=== PATIENT | female | born 1985 | race American Indian/Alaskan Native ===

== ENCOUNTER 2017-08-08 03:55 | Emergency (ER) | payer MEDICAID, OTHER ==
[2017-08-08 05:28] LABS: Anion Gap 19 mmol/L; BUN/Creatinine Ratio 15.71; Blood Urea Nitrogen 11 mg/dL (7-17); Calcium 8.9 mg/dL (8.4-10.2); Carbon Dioxide 22 mmol/L (22-30); Chloride 98.6 mmol/L (98-107); Glucose 101 mg/dL (65-100); Potassium 4.4 mmol/L (3.6-5.0); Sodium 135 mmol/L (137-145)
[2017-08-08 05:50] LABS: Basophils % (Auto) 0.4 % (0.0-1.8); Eosinophils % (Auto) 1.3 % (0.0-4.3); Hemoglobin 13.4 gm/dl (10.1-14.3); Mean Corpuscular HGB Conc 34 % (30-34); Mean Corpuscular Hemoglobin 30 pg (28-32); Mean Corpuscular Volume 86 fl (79-97); Platelet Count 221 K/mm3 (140-440); Red Blood Count 4.54 M/mm3 (3.65-5.03); Red Cell Distribution Width 14.1 % (13.2-15.2); White Blood Count 7.3 K/mm3 (4.5-11.0)
[2017-08-08 06:05] LABS: Bilirubin,Urine NEG (Negative); Blood,Urine NEG (Negative); Ketones,Urine NEG (Negative); Leukocyte Esterase,Urine NEG (Negative); Nitrite,Urine NEG (Negative); Protein,Urine <15 mg/dL mg/dL (Negative); Urobilinogen,Urine < 2.0 mg/dL (<2.0); WBC,Urine < 1.0 /HPF (0.0-6.0)
--- NOTE | 2017-08-08 12:05 | Ultrasound Report ---
FINAL REPORT EXAM: US OB TRANSVAGINAL HISTORY: / VAG BLEEDING TECHNIQUE: Transabdominal and transvaginal OB ultrasound. PRIORS: None currently available. FINDINGS: Single intrauterine dates 6.4 weeks mean sac diameter. STACI equals March 30, 2018. Gestational sac measures 17.0 mm. No yolk sac or pole identified. No subchorionic bleed[place] [address]. Uterus: 12.5 x 5.0 x 8.0 cm. Right ovary: 3.5 x 2.2 x 2.6. within normal limits. Left Ovary: 4.0 x 2.8 x 3.9. cystic structure without peripheral flow measuring 2.0 x 0.8 x 2.0 cm. Adnexal: Unremarkable. No free fluid. IMPRESSION: Gestational sac without yolk sac or pole. Given the beta HCG levels findings are concerning for a nonviable versus early . Short-term interval follow-up recommended. Cystic lesion in the left ovary is atypical and could represent a corpus luteal cyst. Ectopic is not entirely excluded but less likely given the lack of peripheral flow and no complex free fluid in the cul-de-sac. Please correlate for localized tenderness.
--- NOTE | 2017-08-08 12:05 | Ultrasound Report ---
FINAL REPORT EXAM: US OB \T\lt; = 14 WEEKS FETUS HISTORY: / VAG BLEEDING TECHNIQUE: Transabdominal and transvaginal OB ultrasound. PRIORS: None currently available. FINDINGS: Single intrauterine dates 6.4 weeks mean sac diameter. STACI equals March 30, 2018. Gestational sac measures 17.0 mm. No yolk sac or pole identified. No subchorionic bleed[place] [address]. Uterus: 12.5 x 5.0 x 8.0 cm. Right ovary: 3.5 x 2.2 x 2.6. within normal limits. Left Ovary: 4.0 x 2.8 x 3.9. cystic structure without peripheral flow measuring 2.0 x 0.8 x 2.0 cm. Adnexal: Unremarkable. No free fluid. IMPRESSION: Gestational sac without yolk sac or pole. Given the beta HCG levels findings are concerning for a nonviable versus early . Short-term interval follow-up recommended. Cystic lesion in the left ovary is atypical and could represent a corpus luteal cyst. Ectopic is not entirely excluded but less likely given the lack of peripheral flow and no complex free fluid in the cul-de-sac. Please correlate for localized tenderness.
--- NOTE | 2017-08-08 12:47 | Emergency Department Report ---
ED HPI - General Chief complaint: Vaginal Bleeding Stated complaint: ADB PAIN/VAG BLEEDING/5 WKS PREG Time Seen by Provider: 08/08/17 11:48 Source: patient Mode of arrival: Ambulatory Limitations: No Limitations - History of Present Illness Initial comments: 31-year-old female who presents to the hospital 5 weeks 6/7 days according to LMP presents to the hospital with suprapubic cramping, left lower quadrant pain and vaginal spotting. Patient has had suprapubic cramping throughout her . She developed left lower quadrant sharp pain last night that has since improved. Pain was moderate to severe in intensity initially. Patient has some mild vaginal spotting that has since improved. Last sexual intercourse was 2 days ago. This is her fifth and she has 4 living children and denies history of miscarriages or ectopic. PROCESS MECHANIC doctor is Dr. Brenda Snyder. Patient has had blood work performed to confirm as outpatient but no outpatient ultrasound. - Related Data Previous Rx's Medication Instructions Recorded Last Taken Type Azithromycin [Zithromax] 250 mg PO QDAY #6 tablet 11/05/16 Unknown Rx RX: ALBUTEROL Inhaler [ProAir HFA 1 puff IH Q4HR PRN #1 inha 11/05/16 Unknown Rx Inhaler] RX: guaiFENesin/DEXTROMETHORPHAN 10 ml PO Q4HR PRN #1 liquid 11/05/16 Unknown Rx [Eql Tussin Dm Max Liquid] Allergies Allergy/AdvReac Type Severity Reaction Status Date / Time No Known Allergies Allergy Unverified 11/05/16 09:57 ED Review of Systems ROS: Stated complaint: ADB PAIN/VAG BLEEDING/5 WKS PREG Other details as noted in HPI Comment: All other systems reviewed and negative Other: Constitutional: No fevers chills Eyes: No eye pain visual changes ENT: No ear pain or throat pain Neck: Denies pain Respiratory: Denies cough wheezing shortness of breath Cardiovascular: Denies chest pain, palpitations, syncope GI: Denies nausea, vomiting, diarrhea : Denies dysuria Musculoskeletal: Denies back pain Skin: Denies rash, lesions, erythema Neurologic: Denies headache, numbness, weakness Psychiatric: Denies suicidal ideation, hallucinations ED Past Medical Hx - Past Medical History Previous Medical History?: No Additional medical history: vaginal delivery x 1 - Surgical History Past Surgical History?: Yes Additional Surgical History: x 3 - Social History Smoking Status: Never Smoker Substance Use Type: None - Medications Home Medications: Home Medications Medication Instructions Recorded Confirmed Last Taken Type Azithromycin [Zithromax] 250 mg PO QDAY #6 tablet 11/05/16 Unknown Rx RX: ALBUTEROL Inhaler [ProAir HFA 1 puff IH Q4HR PRN #1 inha 11/05/16 Unknown Rx Inhaler] RX: guaiFENesin/DEXTROMETHORPHAN 10 ml PO Q4HR PRN #1 liquid 11/05/16 Unknown Rx [Eql Tussin Dm Max Liquid] ED Physical Exam - General Limitations: No Limitations - Other Other exam information: General: No limitations, patient is alert in no acute distress Head exam: Atraumatic, normocephalic Eyes exam: Normal appearance ENT: Moist mucous membrane, normal oropharynx Neck exam: Normal inspection, full range of motion Respiratory exam: Clear to auscultation bilateral Cardiovascular: Normal rate and rhythm, normal heart sounds Abdomen: Soft, nondistended, left lower quadrant tenderness without rebound or guarding, mild suprapubic tenderness Extremity: Full range of motion normal inspection no deformity Back: Normal Inspection, full range of motion, no tenderness, Neurologic: Alert, oriented x3, cranial nerves intact, no motor or sensory deficit Psychiatric: normal affect, normal mood Skin: Warm, dry, intact ED Course Vital Signs 08/08/17 08/08/17 08/08/17 04:03 10:31 10:32 Temperature 98.5 F 98.8 F Pulse Rate 79 75 Respiratory 18 18 18 Rate Blood Pressure 139/77 O2 Sat by Pulse 100 100 100 Oximetry - Reevaluation(s) Reevaluation #1: 08/08/17 12:53 Patient declined offer for Tylenol - Consultations Consultation #1: 08/08/17 12:[address] Brenda Snyder her PROCESS MECHANIC doctor. Recommend follow-up in the clinic next Saturday for repeat ultrasound. ED Medical Decision Making - Lab Data Result diagrams: 08/08/17 04:26 08/08/17 04:26 Lab Results 08/08/17 08/08/17 08/08/17 Range/Units 04:26 04:26 04:26 WBC 7.3 (4.5-11.0) K/mm3 RBC 4.54 (3.65-5.03) M/mm3 Hgb 13.4 (10.1-14.3) gm/dl Hct 39.0 (30.3-42.9) % MCV 86 (79-97) fl MCH 30 (28-32) pg MCHC 34 (30-34) % RDW 14.1 (13.2-15.2) % Plt Count 221 (140-440) K/mm3 Lymph % (Auto) 36.7 H (13.4-35.0) % Sutton % (Auto) 5.9 (0.0-7.3) % Eos % (Auto) 1.3 (0.0-4.3) % Baso % (Auto) 0.4 (0.0-1.8) % Lymph # 2.7 (1.2-5.4) K/mm3 Sutton # 0.4 (0.0-0.8) K/mm3 Eos # 0.1 (0.0-0.4) K/mm3 Baso # 0.0 (0.0-0.1) K/mm3 Seg Neutrophils % 55.7 (40.0-70.0) % Seg Neutrophils # 4.1 (1.8-7.7) K/mm3 Sodium 135 L (137-145) mmol/L Potassium 4.4 (3.6-5.0) mmol/L Chloride 98.6 (98-107) mmol/L Carbon Dioxide 22 (22-30) mmol/L Anion Gap 19 mmol/L BUN 11 (7-17) mg/dL Creatinine 0.7 (0.7-1.2) mg/dL Estimated GFR > 60 ml/min BUN/Creatinine Ratio 15.71 % Glucose 101 H (65-100) mg/dL Calcium 8.9 (8.4-10.2) mg/dL HCG, Quant 43708 H (0-4) mIU/mL Urine Color (Yellow) Urine Turbidity (Clear) Urine pH (5.0-7.0) Ur Specific [place] (1.003-1.030) Urine Protein (Negative) mg/dL Urine Glucose (UA) (Negative) mg/dL Urine Ketones (Negative) mg/dL Urine Blood (Negative) Urine Nitrite (Negative) Urine Bilirubin (Negative) Urine Urobilinogen (<2.0) mg/dL Ur Leukocyte Esterase (Negative) Urine WBC (Auto) (0.0-6.0) /HPF Urine RBC (Auto) (0.0-6.0) /HPF U Epithel Cells (Auto) (0-13.0) /HPF Blood Type Antibody Screen 08/08/17 08/08/17 Range/Units 11:55 Unknown WBC (4.5-11.0) K/mm3 RBC (3.65-5.03) M/mm3 Hgb (10.1-14.3) gm/dl Hct (30.3-42.9) % MCV (79-97) fl MCH (28-32) pg MCHC (30-34) % RDW (13.2-15.2) % Plt Count (140-440) K/mm3 Lymph % (Auto) (13.4-35.0) % Sutton % (Auto) (0.0-7.3) % Eos % (Auto) (0.0-4.3) % Baso % (Auto) (0.0-1.8) % Lymph # (1.2-5.4) K/mm3 [place] # (0.0-0.8) K/mm3 Eos # (0.0-0.4) K/mm3 Baso # (0.0-0.1) K/mm3 Seg Neutrophils % (40.0-70.0) % Seg Neutrophils # (1.8-7.7) K/mm3 Sodium (137-145) mmol/L Potassium (3.6-5.0) mmol/L Chloride (98-107) mmol/L Carbon Dioxide (22-30) mmol/L Anion Gap mmol/L BUN (7-17) mg/dL Creatinine (0.7-1.2) mg/dL Estimated GFR ml/min BUN/Creatinine Ratio % Glucose (65-100) mg/dL Calcium (8.4-10.2) mg/dL HCG, Quant (0-4) mIU/mL Urine Color Straw (Yellow) Urine Turbidity Clear (Clear) Urine pH 7.0 (5.0-7.0) Ur Specific [place] 1.008 (1.003-1.030) Urine Protein <15 mg/dl (Negative) mg/dL Urine Glucose (UA) Neg (Negative) mg/dL Urine Ketones Neg (Negative) mg/dL Urine Blood Neg (Negative) Urine Nitrite Neg (Negative) Urine Bilirubin Neg (Negative) Urine Urobilinogen < 2.0 (<2.0) mg/dL Ur Leukocyte Esterase Neg (Negative) Urine WBC (Auto) < 1.0 (0.0-6.0) /HPF Urine RBC (Auto) 1.0 (0.0-6.0) /HPF U Epithel Cells (Auto) 1.0 (0-13.0) /HPF Blood Type A POSITIVE Antibody Screen Negative - Radiology Data Radiology results: report reviewed (transvaginal pelvic ultrasound: A positive gestational sac without pole. Concerning for nonviable versus early given the elevated bhcg. Cystic lesion in the left ovary is atypical and could represent corpus luteum cyst. Ectopic is not excluded) - Medical Decision Making Patient is Rh+ and therefore does not require RhoGAM. Case discussed with patient and the PROCESS MECHANIC doctor about concerns for ectopic until pole is visualized. PROCESS MECHANIC recommends follow-up next Saturday for repeat ultrasound - Differential Diagnosis ectopic, miscarriage, ovarian cyst Critical Care Time: No Critical care attestation.: If time is entered above; I have spent that time in minutes in the direct care of this critically ill patient, excluding procedure time. ED Disposition Clinical Impression: Threatened miscarriage, Left ovarian cyst, Blood type A+ Disposition: - TO HOME OR SELFCARE Is pt being admited?: No Does the pt Need Aspirin: No Condition: Stable Instructions: Threatened Miscarriage (ED), Ovarian Cyst (ED), Ectopic (ED) Additional Instructions: The ultrasound shows a gestational sac in the uterus and the left ovarian cyst. Until we can actually see a pole we cannot rule out an ectopic at this time. Therefore, you were also provided ectopic precautions. Recommended pelvic rest/no sex. Follow-up with your PROCESS MECHANIC doctor on Saturday the for repeat ultrasound. If pain or bleeding worsens prior to this date he may return to the ER for further evaluation. Please call the office to schedule an appointment. Take Tylenol only as needed for pain. Referrals: BRENDA SNYDER MD [Primary Care Provider] - 08/14/17 Time of Disposition: 12:44
[2017-08-08 13:13] VITALS: BP 122/75
== END 2017-08-08 13:11 | disposition home or self-care (01) ==
LOC: ED 03:55
DX: O20.0 Threatened abortion (principal); Z3A.01 Less than 8 weeks gestation of pregnancy; O34.81 Maternal care for other abnormalities of pelvic organs, first trimester; N83.202 Unspecified ovarian cyst, left side
CPT/HCPCS: 36415; 76801; 76817; 80048; 81001; 84702; 85025; 86850; 86900; 86901

== ENCOUNTER 2018-02-24 07:53 | Outpatient (CLI) | payer MEDICAID ==
[2018-02-24] MEDS ORDERED: LACTATED RINGERS 500 ML IV ONE (08:35)
[2018-02-24 08:54] LABS: Bacteria,Urine 1+ /HPF (Negative); Bilirubin,Urine NEG (Negative); Blood,Urine NEG (Negative); Color,Urine Yellow (Yellow); Protein,Urine <15 mg/dL mg/dL (Negative); Urobilinogen,Urine < 2.0 mg/dL (<2.0)
[2018-02-24] MEDS ORDERED: BRETHINE SUB-Q ONE (09:00)
[2018-02-24 10:41] VITALS: BP 133/71
== END 2018-02-24 09:56 | disposition home or self-care (01) ==
LOC: TRG 07:53
PROVIDERS: ATTEND Obstetrics & Gynecology
DX: O47.03 False labor before 37 completed weeks of gestation, third trimester (principal); Z3A.34 34 weeks gestation of pregnancy
CPT/HCPCS: 59025; 81001; J3105; J7120; 96372

== ENCOUNTER 2018-03-13 03:36 | Outpatient (CLI) | payer MEDICAID ==
[2018-03-13 04:10] VITALS: BP 134/76
[2018-03-13] MEDS ORDERED: LACTATED RINGERS 1,000 ML IV SCH (05:00)
[2018-03-13] MEDS ORDERED: ZOFRAN IV ONE (05:27)
[2018-03-13] MEDS ORDERED: VISTARIL PO ONE (05:28)
== END 2018-03-13 05:45 | disposition home or self-care (01) ==
LOC: TRG 03:36
PROVIDERS: ATTEND Obstetrics & Gynecology
DX: O47.1 False labor at or after 37 completed weeks of gestation (principal); Z3A.37 37 weeks gestation of pregnancy
CPT/HCPCS: 59025; 96360; J2405; J7120

== ENCOUNTER 2018-03-26 18:13 | Inpatient (IN) | payer MEDICAID ==
[2018-03-26] MEDS: LACTATED RINGERS 1,000 ML IV SCH (20:12)
[2018-03-26] MEDS ORDERED: PEPCID IV ONE (22:39)
[2018-03-26] MEDS ORDERED: BICITRA PO ONE (22:39)
[2018-03-26] MEDS ORDERED: REGLAN IV ONE (22:39)
--- NOTE | 2018-03-26 22:47 | History and Physical Report ---
History of Present Illness Date of examination: 03/26/18 Date of admission: 03/26/18 22:31 Chief complaint: Labor History of present illness: This is a 32yo female with history of 3 prior deliveries who presents complaining of contractions rated 7/10 pain. Cervix 0.5cm per RN she was found to be reg q2-4mins. She was given 1L IVF however contractions continued , she admitted now to proceed with repeat C/s d/t concerns for uterine rupture should contractions continue. Past History : 5 Term Births: 4 Premature Births: 0 Living Children: 4 Para: 4 Mult. Births: 0 Prev : 3 Prev. attempt? 0 Aborta: 0 Elect. Ab: 0 Spont. Ab: 0 Ectopics: 0 # 1 Delivery date: 09/02/2001 Weeks Gestation: 40 labor: no Delivery type: Anesthesia type: epidural Delivery location: [facility] Infant Sex: Female weight: 7-11 Comments: no complications # 2 Delivery date: 07/02/2006 Weeks Gestation: 39 labor: no Delivery type: Anesthesia type: epidural Delivery location: [facility] Sex: Female weight: 7-3 Comments: pcs d/t non reassuring fhr inc bp's # 3 Delivery date: 01/01/2008 Weeks Gestation: 39 labor: no Delivery type: Anesthesia type: epi/general Delivery location: [facility] Sex: Male weight: 7-2 Comments: sched rpt c/s no complications # 4 Delivery date: 08/24/2009 Weeks Gestation: 38+1 labor: no Delivery type: Anesthesia type: spinal Delivery location: [facility] Infant Sex: female weight: 6.63 Comments: early labor, pelvic adhesions, obesity Past Surgical History: Abdominoplasty 01/26 C-sectionx3 Hysteroscopy: (2014) Past Medical History Surgery (Non-assistant professor of german): Abdominoplasty 01/26 C-sectionx3 Hysteroscopy: (2014) Social Hx: , no tobacco, no etoh, no illicit drug use Genetic History Congenital Heart Defect: Mom: no Dad: no Carlota Disease: Mom: no Dad: no Thalassemia Mom: no Dad: no Neural Tube Defect Mom: no Dad: no Down's Syndrome Mom: no Dad: no Rex-Sachs Mom: no Dad: no Sickle Cell Disease/Trait Mom: no Dad: no Hemophilia Mom: no Dad: no Muscular Dystrophy Mom: no Dad: no Cystic Fibrosis Mom: no Dad: no Raudel Chorea Mom: no Dad: no Mental Retardation Mom: no Dad: no Fragile X Mom: no Dad: no Other Genetic/Chromosomal Disorder Mom: no Dad: no Child w/other defect Mom: no Dad: no Active Medications (reviewed today): ALEXX 250 MG/ML INTRAMUSCULAR OIL (HYDROXYPROGESTERONE CAPROATE) FORMULA TABLET ( VIT-FE FUMARATE-FA TABS) Current Allergies (reviewed today): * NKDA (Critical) Past History - Obstetrical History Expected Date of Delivery: 04/03/18 Actual Gestation: 38 Week(s) 6 Day(s) : 5 Medications and Allergies Allergies Allergy/AdvReac Type Severity Reaction Status Date / Time No Known Allergies Allergy Unverified 11/05/16 09:57 Home Medications Medication Instructions Recorded Confirmed Last Taken Type No Known Home Medications [No 03/13/18 03/26/18 Unknown History Reported Home Medications] Active Meds: Active Medications Lactated Ringer's (Lactated Ringers) 1,000 mls @ 125 mls/hr IV DIRECT JOSE LUIS Last Admin: 03/26/18 20:12 Dose: 999 mls/hr Review of Systems All systems: negative Genitourinary: contractions - Vital Signs Vital signs: Vital Signs Pulse BP Pulse Ox 100 H 121/74 100 03/26/18 18:50 03/26/18 18:50 03/26/18 18:50 Temp Pulse Resp BP Pulse Ox 99.6 F 92 H 20 121/74 100 03/26/18 19:08 03/26/18 21:00 03/26/18 19:08 03/26/18 18:50 03/26/18 21:00 - Physical Exam Breasts: Positive: deferred Cardiovascular: Regular rate Lungs: Positive: Normal air movement Abdomen: Positive: other (obese) - Obstetrical FHR: category 1 Uterine Contraction Monitor Mode: External Uterine Contraction Frequency (min): 2-4 Results All other labs normal. Assessment and Plan - Patient Problems (1) 38 weeks gestation of Current Visit: Yes Status: Acute (2) Maternal care for scar from previous delivery Current Visit: Yes Status: Acute Qualifiers: Previous delivery type: low transverse Qualified Code(s): O34.211 - Maternal care for low transverse scar from previous delivery Plan to address problem: She again declined sterilization, she was informed that with each subsequent she exponentially increases her risks of life threatening complications including but not limited to bleeding, infection, injury to her bowel/bladder, uterine rupture, brain damage and . She was informed she may require the removal of her uterus to save her life. Her consent from the office was reviewed, questions were encouraged and answered, she voiced understanding and desires to proceed with delivery tonight without sterilization. (3) BMI 45.0-49.9, adult Current Visit: Yes Status: Acute
[2018-03-26] MEDS ORDERED: PITOCin/NS 20 UNIT/1000ML DRIP 20 UNITS/1,000 ML BAG IV SCH (23:00)
[2018-03-26] MEDS ORDERED: ANCEF/STERILE WATER 2 GM/20 ML 2 GM/20 ML SYRINGE IV NR (23:00)
[2018-03-26 23:14] LABS: Basophils % (Auto) 0.3 % (0.0-1.8); Eosinophils # (Auto) 0.1 K/mm3 (0.0-0.4); Eosinophils % (Auto) 1.1 % (0.0-4.3); Hematocrit 35.8 % (30.3-42.9); Hemoglobin 11.8 gm/dl (10.1-14.3); Lymphocytes # (Auto) 1.9 K/mm3 (1.2-5.4); Lymphocytes % (Auto) 24.4 % (13.4-35.0); Mean Corpuscular HGB Conc 33 % (30-34); Mean Corpuscular Hemoglobin 29 pg (28-32); Mean Corpuscular Volume 87 fl (79-97); Monocytes # (Auto) 0.9 K/mm3 (0.0-0.8); Monocytes % (Auto) 11.5 % (0.0-7.3); Platelet Count 143 K/mm3 (140-440); Red Blood Count 4.12 M/mm3 (3.65-5.03); Red Cell Distribution Width 16.3 % (13.2-15.2)
[2018-03-27] MEDS: LACTATED RINGERS 1,000 ML IV SCH ×3 (01:14→07:18)
[2018-03-27] MEDS ORDERED: BICITRA ONE (01:15)
[2018-03-27] MEDS ORDERED: REGLAN ONE (01:15)
[2018-03-27] MEDS ORDERED: PEPCID IV ONE (01:15)
[2018-03-27] MEDS ORDERED: WATER FOR IRRIG STERILE IR ONE (03:45)
[2018-03-27] MEDS ORDERED: NACL 0.9% IR ONE (03:45)
--- NOTE | 2018-03-27 05:27 | Anesthesia Consultation ---
Anesthesia Consult and Med Hx Date of service: 03/27/18 - Airway Anesthetic Teeth Evaluation: Good ROM Head & Neck: Adequate Mental/Hyoid Distance: Adequate Mallampati Class: Class II - Pulmonary Exam CTA: Yes - Cardiac Exam Cardiac Exam: RRR - Pre-Operative Health Status ASA Pre-Surgery Classification: ASA3 Proposed Anesthetic Plan: Spinal - Pulmonary Hx Asthma: No COPD: No Hx Pneumonia: No - Cardiovascular System Hx Hypertension: No - Central Nervous System Hx Seizures: No Hx Psychiatric Problems: No - Endocrine Hx Renal Disease: No Hx End Stage Renal Disease: No Hx Hypothyroidism: No Hx Hyperthyroidism: No - Hematic Hx Anemia: No Hx Sickle Cell Disease: No - Other Systems Hx Alcohol Use: No Hx Obesity: Yes
--- NOTE | 2018-03-27 05:27 | Anesthesia Day of Surgery ---
Anesthesia Day of Surgery - Day of Surgery Patient Examined: Yes Patient H&P Reviewed: Yes Patient is NPO: Yes Beta Blockers: Yes Cardiac Clearance: No Pulmonary Clearance: No
[2018-03-27] MEDS ORDERED: DILAUDID IV PRN (05:28)
[2018-03-27] MEDS ORDERED: ZOFRAN IV PRN ×2 (05:28→07:30)
[2018-03-27] MEDS ORDERED: PHENERGAN PO PRN (05:28)
--- NOTE | 2018-03-27 05:28 | Post Anesthesia Evaluation ---
- Post Anesthesia Evaluation Patient Participated: Yes Airway Patent: Yes Stable Respiratory Function: Yes Nausea/Vomiting: No Temp > 96.8F: Yes Pain Manageable: Yes Adequeate Hydration: Yes Anesthesia Complications: No Block Receding Appropriately: Yes Patient on Ventilator: No
--- NOTE | 2018-03-27 05:36 | Operative Report ---
Operative Report Operative Report: Date: 03/27/2018 Preoperative diagnosis: 1. Intrauterine at 39 weeks 2. Previous delivery 3 3. Persistent uterine contractions 4. Body mass index 47 Postoperative diagnosis: 1. Intrauterine at 39 weeks 2. Previous delivery 3 3. Persistent uterine contractions 4. Body mass index 47 Procedure: Low uterine transverse incision for delivery Surgeon: Brenda Mahoney MD Head Housekeeper: Penny Sargent Anesthesia: Combined spinal epidural Anesthesiologist: Dr. Waterman Estimated blood loss: 800 mL Urine out: 150 mL; clear yellow Findings: Live born male . Weight 8 lbs. 7 oz. Apgars 8 at 1 minute and 9 at 9 minutes. Uterus enlarged, tubes adhesions, ovaries normal. Procedure: After risk, benefits, complications, consequences and alternatives for this procedure were discussed with patient and consents were reviewed and signed, she was taken to the OR where combined spinal epidural anesthesia was placed. She was then placed in the left lateral tilt position, and prepped and draped in the usual sterile fashion. Timeout was performed, and an appropriate level of anesthesia was noted, a Pfannenstiel incision was made and extended to the fascia which was incised and extended in the lateral directions. The overlying fascia was sharply dissected away from the underlying rectus muscles in the superior and inferior directions. The midline was entered bluntly. The vesicouterine fold was incised and with blunt dissection the bladder flap was created. A small dehiscence of the lower uterine segment on the left was noted with membranes protruding through was noted. A transverse incision was made in the lower uterine segment and extended in superiolateral direction with finger fractionation. Copious clear fluid was noted. The infant was delivered from cephalic position. Mouth and nose were bulb suctioned. Spontaneous cry and excellent tone were noted. Cord was doubly clamped and cut. The was given to /resuscitation team present. The placenta was manually extracted. The uterus was then exteriorized and cleared of any further products of conception or placental tissue. The incision was reapproximated using 0 Vicryl in a running interlocking stitch. The incision was reinforced using 0 Vicryl in multiple [id number] stitches. The patient was unable to be performed because of concerns for tearing of the thin lower uterine segment. Once hemostasis was noted, the uterus was allowed back into the pelvic cavity. The pelvis was irrigated with warm normal saline. Again hemostasis was noted . Surgicel applied for further hemostasis. Interceed was then placed to prevent adhesions. Then attention was turned to the rectus muscles. The rectus muscles were unable to be safely reapproximated. Once hemostasis was noted, the fascia was reapproximated using 0 Vicryl running stitch fashion. Subcuticular adipose tissue was reapproximated using 0 Vicryl interrupted figure -of-eight stitches. Another layer of closure was performed using 3-0 Vicryl in interrupted [id number] fashion. Once hemostasis was noted skin incision was reapproximated using 4-0 Vicryl on a Jose needle in a subcuticular manner. Counts were correct 3. Patient tolerated procedure well state recovery room in stable condition. The patient was informed that her lower uterine segment was essentially nonexistent at the time of the procedure she should strongly consider sterilization or not getting due to concerns for rupture of uterus.
[2018-03-27] MEDS ORDERED: METHERGINE IM PRN (07:30)
[2018-03-27] MEDS ORDERED: TUCKS PAD TP PRN (07:30)
[2018-03-27] MEDS ORDERED: TYLENOL PO PRN (07:30)
[2018-03-27] MEDS ORDERED: TYLENOL PR PRN (07:30)
[2018-03-27] MEDS ORDERED: HEMABATE IM PRN (07:30)
[2018-03-27] MEDS ORDERED: MOTRIN PO PRN (07:30)
[2018-03-27] MEDS ORDERED: LANSINOH TP PRN (07:30)
[2018-03-27] MEDS ORDERED: MORPHINE IV PRN (07:30)
[2018-03-27] MEDS ORDERED: D5LR 1,000 ML IV SCH (07:30)
[2018-03-27] MEDS ORDERED: TORADOL IV PRN (07:30)
[2018-03-27] MEDS ORDERED: SODIUM CHLORIDE FLUSH SYRINGE 10 ML IV PRN (08:00)
[2018-03-27] MEDS ORDERED: CYTOTEC PR PRN (08:00)
[2018-03-27] MEDS ORDERED: PITOCin/NS 20 UNIT/1000ML DRIP 20 UNITS/1,000 ML BAG IV SCH (08:00)
[2018-03-27] MEDS ORDERED: PERCOCET 5/325 PO PRN (08:00)
[2018-03-27] MEDS ORDERED: PHENERGAN PR PRN (08:00)
[2018-03-27] MEDS ORDERED: MYLICON PO PRN (08:00)
[2018-03-27] MEDS ORDERED: NARCAN 0.4 MG/1 ML IV PRN (08:00)
[2018-03-27] MEDS ORDERED: ANCEF/NS 1 GM/50 ML 1 GM/50 ML BAG IV SCH (10:00)
[2018-03-27] MEDS: ceFAZolin 1 GM in NACL 0.9% 20 ML IV SCH ×2 (10:58→18:36)
[2018-03-27] MEDS: BENADRYL IV PRN ×2 (15:39→17:51)
--- NOTE | 2018-03-27 16:02 | Query- General ---
Bill Rossi___Denzel Date:__03/27/2018 [employer]CARRIE:____Mara Phone#:__[phone] Exercise your independent professional judgment when responding to this query. Questions asked do not imply a particular answer is desired or expected. We greatly appreciate your clarification on this issue. Clinical Documentation States: 32yo female with history of 3 prior deliveries who presents on 2017 complaining of contractions rated 7/10 pain. The [employer] ATTENDANT H&P states "(3) BMI 45.0-49.9, adult Current Visit: Yes Status: Acute." Given the above clinical scenario can you please provide an appropriate diagnosis based on your knowledge of the patient: PHYSICIAN RESPONSE: [X ] Morbid Obesity [ ] Overweight [ ] Weight gain [ ] Obesity [ ] Other: [ ] Unable to determine Present on Admission: [ ] Yes (Y) [ ] Clinically undeterminable (W) [ ]No(N) Please also document response in your Progress Notes and/or Discharge Summary and indicate if the condition was present on admission. MASSIMO
[2018-03-27 17:50] LABS: Hematocrit 34.5 % (30.3-42.9); Hemoglobin 11.1 gm/dl (10.1-14.3)
[2018-03-27] MEDS ORDERED: MILK OF MAGNESIA PO PRN (22:00)
[2018-03-28] MEDS ORDERED: BOOSTRIX IM ONE (06:00)
--- NOTE | 2018-03-28 20:52 | Progress Note ---
Assessment and Plan - Patient Problems (1) delivery delivered Current Visit: Yes Status: Acute Plan to address problem: sitting up in bed with family present and baby in her arma, no complaints, minimal bleeding. Continue post C/S pathwauy Desires d/c home tomorrow (2) Single live Current Visit: Yes Status: Acute (3) Maternal care for scar from previous delivery Current Visit: Yes Status: Acute Qualifiers: Previous delivery type: low transverse Qualified Code(s): O34.211 - Maternal care for low transverse scar from previous delivery (4) BMI 45.0-49.9, adult Current Visit: Yes Status: Chronic (5) 38 weeks gestation of Current Visit: Yes Status: Acute Subjective - Subjective Date of service: 03/28/18 Principal diagnosis: POD#1 s/p c/s Interval history: This is a 32yo female with history of 3 prior deliveries who presents complaining of contractions rated 7/10 pain. Cervix 0.5cm per RN she was found to be reg q2-4mins. She was given 1L IVF however contractions continued , she admitted now to proceed with repeat C/s d/t concerns for uterine rupture should contractions continue. Past History : 5 Term Births: 4 Premature Births: 0 Living Children: 4 Para: 4 Mult. Births: 0 Prev : 3 Prev. attempt? 0 Aborta: 0 Elect. Ab: 0 Spont. Ab: 0 Ectopics: 0 # 1 Delivery date: 09/02/2001 Weeks Gestation: 40 labor: no Delivery type: Anesthesia type: epidural Delivery location: [facility] Infant Sex: Female weight: 7-11 Comments: no complications # 2 Delivery date: 07/02/2006 Weeks Gestation: 39 labor: no Delivery type: Anesthesia type: epidural Delivery location: [facility] Sex: Female weight: 7-3 Comments: pcs d/t non reassuring fhr inc bp's # 3 Delivery date: 01/01/2008 Weeks Gestation: 39 labor: no Delivery type: Anesthesia type: epi/general [facility] Sex: Male weight: 7-2 Comments: sched rpt c/s no complications # 4 Delivery date: 08/24/2009 Weeks Gestation: 38+1 labor: no Delivery type: Anesthesia type: spinal Delivery location: [facility] Infant Sex: female weight: 6.63 Comments: early labor, pelvic adhesions, obesity Past Surgical History: Abdominoplasty 01/26 C-sectionx3 Hysteroscopy: (2014) Past Medical History Surgery (Non-admission liaison): Abdominoplasty 01/26 C-sectionx3 Hysteroscopy: (2014) Social Hx: , no tobacco, no etoh, no illicit drug use Genetic History Congenital Heart Defect: Mom: no Dad: no Carlota Disease: Mom: no Dad: no Thalassemia Mom: no Dad: no Neural Tube Defect Mom: no Dad: no Down's Syndrome Mom: no Dad: no Rex-Sachs Mom: no Dad: no Sickle Cell Disease/Trait Mom: no Dad: no Hemophilia Mom: no Dad: no Muscular Dystrophy Mom: no Dad: no Cystic Fibrosis Mom: no Dad: no Pope Chorea Mom: no Dad: no Mental Retardation Mom: no Dad: no Fragile X Mom: no Dad: no Other Genetic/Chromosomal Disorder Mom: no Dad: no Child w/other defect Mom: no Dad: no Active Medications (reviewed today): ALEXX 250 MG/ML INTRAMUSCULAR OIL (HYDROXYPROGESTERONE CAPROATE) FORMULA TABLET ( VIT-FE FUMARATE-FA TABS) Current Allergies (reviewed today): * NKDA (Critical) Patient reports: appetite normal, voiding normally, pain well controlled, ambulating normally Objective - Vital Signs Latest vital signs: Vital Signs Temp Pulse Resp BP BP Pulse Ox 03/28/18 16:45 99.4 F 89 20 121/78 03/28/18 10:30 99.1 F 88 20 125/75 88 03/28/18 04:15 98.8 F 86 20 134/77 98 03/28/18 00:35 99.1 F 85 20 137/78 99 03/27/18 21:17 99.2 F 91 H 20 132/80 98 Intake and Output 03/28/18 03/28/18 03/28/18 06:59 14:59 22:59 Intake Total 600 600 320 Output Total 1700 600 Balance -1100 600 -280 Intake: Oral 600 600 320 Output: Urine 1700 600 Void 1700 600 Other: Total, Intake Amount 240 240 320 Total, Output Amount 700 600 - Exam Breasts: Present: deferred
[2018-03-29] MEDS ORDERED: NEO SYNEPHRINE/NS Syringe(OR USE) IV ONE (04:30)
[2018-03-29 13:02] VITALS: BP 119/71
--- NOTE | 2018-03-29 15:29 | Discharge Summary ---
Providers - Providers Date of Admission: 03/26/18 22:31 Date of discharge: 03/29/18 Attending physician: ROHINI MAHMOOD 03/27/18 07:28 Consult to [employer] [CONS] Routine Reason For Exam: Primary care physician: CHRISTIE TRUONG Hospitalization Reason for admission: active labor Delivery: Procedure: section Incision: normal, dry, intact Other procedures: none complications: none Discharge diagnosis: IUP at term delivered [place] baby: male Hospital course: Please see him dictated time history and physical. Patient was admitted and underwent above procedure without complications. Her post operative course was benign she was afebrile throughout. Patient postoperative day 1 hematocrit was in an acceptable range. Patient had no orthostatic symptoms. Patient was tolerating regular diet and voiding without difficulty at time of discharge. Patient incision was healing well without evidence of infection. Condition at discharge: Good Disposition: DC-01 TO HOME OR SELFCARE - Discharge Diagnoses (1) delivery delivered Status: Acute (2) Maternal care for scar from previous delivery Status: Chronic Qualifiers: Previous delivery type: low transverse Qualified Code(s): O34.211 - Maternal care for low transverse scar from previous delivery (3) BMI 45.0-49.9, adult Status: Chronic Plan - Discharge Medications Prescriptions: Lidocain2.5%/Prilocai2.5% [Emla] 5 gm TP ONCE #1 tube Ibuprofen [Motrin 800 MG tab] 800 mg PO TID PRN #30 tablet PRN Reason: Pain oxyCODONE /ACETAMINOPHEN [Percocet 5/325 mg] 1 - 2 tab PO Q4HR PRN #30 tablet PRN Reason: Pain - Provider Discharge Summary Activity: routine, no sex for 6 weeks, no heavy lifting 4 weeks, no strenuous exercise Diet: routine Instructions: routine Additional instructions: [] Smoking cessation referral if applicable(refer to patient education folder for contact #) [] Refer to [facility] Booklet Call your doctor immediately for: * Fever > 100.5 * Heavy vaginal bleeding ( >1 pad per hour) * Severe persistent headache * Shortness of breath * Reddened, hot, painful area to leg or breast * Drainage or odor from incision. Patient call office to schedule son circumcision * Keep incision clean and dry at all times and follow doctor's instructions regarding bathing/showering - Follow up plan Follow up: CHRISTIE TRUONG MD [Primary Care Provider] - 7 Days Forms: [facility] Discharge Summary
== END 2018-03-29 14:45 | disposition home or self-care (01) | DRG 765 ==
LOC: TRG 18:13 → APU 22:31 → OB 03-27 06:51
PROVIDERS: ADMIT Obstetrics & Gynecology; ATTEND Obstetrics & Gynecology
PROC: 10D00Z1 Extraction of Products of Conception, Low, Open Approach (ICD-10-PCS; principal; 2018-03-27)
DX: O34.211 Maternal care for low transverse scar from previous cesarean delivery (principal); Z68.42 Body mass index [BMI] 45.0-49.9, adult; Z3A.38 38 weeks gestation of pregnancy; Z37.0 Single live birth; E66.01 Morbid (severe) obesity due to excess calories
CPT/HCPCS: 36415; 85014; 85018; 85025; 86592; 86850; 86900; 86901; 90471; 90715; 99211; C1765; G0463; J0690; J1200; J2370; J2405; J2590; J2765; J7120; J7121

== ENCOUNTER 2019-10-30 23:30 | Outpatient (CLI) | payer MEDICAID ==
[2019-10-31 00:54] VITALS: BP 119/70
[2019-10-31 02:50] LABS: Bilirubin,Urine NEG (Negative); Blood,Urine NEG (Negative); Color,Urine Yellow (Yellow); Mucus,Urine FEW /HPF; Protein,Urine <15 mg/dL mg/dL (Negative); Urobilinogen,Urine < 2.0 mg/dL (<2.0); WBC,Urine < 1.0 /HPF (0.0-6.0)
== END 2019-10-31 02:42 | disposition home or self-care (01) ==
LOC: TRG 23:30
PROVIDERS: ATTEND Obstetrics & Gynecology
DX: O62.9 Abnormality of forces of labor, unspecified (principal); Z3A.30 30 weeks gestation of pregnancy
CPT/HCPCS: 59025; 81001

== ENCOUNTER 2019-11-26 03:18 | Outpatient (CLI) | payer MEDICAID ==
[2019-11-26] MEDS ORDERED: LACTATED RINGERS 1,000 ML IV ONE (03:20)
[2019-11-26 03:33] VITALS: BP 113/72
[2019-11-26] MEDS ORDERED: TERBUTALINE 1 MG/1 ML INJ ONE (03:52)
[2019-11-26] MEDS ORDERED: TERBUTALINE 1 MG/1 ML INJ SUB-Q ONE (03:52)
[2019-11-26 04:07] LABS: Bacteria,Urine 1+ /HPF (Negative); Bilirubin,Urine NEG (Negative); Blood,Urine NEG (Negative); Color,Urine Straw (Yellow); Protein,Urine <15 mg/dL mg/dL (Negative); Urobilinogen,Urine < 2.0 mg/dL (<2.0)
== END 2019-11-26 06:02 | disposition home or self-care (01) ==
LOC: TRG 03:18
PROVIDERS: ATTEND Obstetrics & Gynecology
DX: O62.9 Abnormality of forces of labor, unspecified (principal); O09.523 Supervision of elderly multigravida, third trimester; Z3A.34 34 weeks gestation of pregnancy
CPT/HCPCS: 59025; 81001; 96360; 96361; 96372; J3105; J7120